=== PATIENT | female | born 1975 | race Two or more races ===

== ENCOUNTER 2019-09-21 23:37 | Emergency (ER) | payer SELFPAY ==
[~2019-09-21] VITALS: Ht 162.6 cm; Wt 60.3 kg
--- NOTE | 2019-09-22 00:23 | NUR ---
BIBS. C.O "KANDY BEEN HAVING ALOT OF VAGINAL BLEEDING +ABDOMINAL PAIN" -SOB AOX4. VSS.
--- NOTE | 2019-09-22 00:47 | NUR ---
URINE COLLECTED AND SENT TO LAB
[2019-09-22] MEDS ORDERED: ONDANSETRON HCL/PF 4 MG/2 ML VIAL ONE (01:28)
[2019-09-22] MEDS ORDERED: MORPHINE SULFATE INJ 4 MG/ML DISP.SYRIN ONE ×2 (01:29→03:03)
[2019-09-22] MEDS ORDERED: ONDANSETRON HCL/PF 4 MG/2 ML VIAL IV ONE (01:30)
[2019-09-22] MEDS ORDERED: MORPHINE SULFATE INJ 2 MG/ML DISP.SYRIN IV ONE ×2 (01:30→03:30)
[2019-09-22 01:40] LABS: BASOPHILS # (AUTO) 0.1 /CMM (0.0-0.2); BASOPHILS % (AUTO) 1.2 % (0.0-2.0); EOSINOPHILS % (AUTO) 1.3 % (0.0-6.0); HEMATOCRIT 39 % (33-45); HEMOGLOBIN 13.4 g/dL (11.5-14.8); LYMPHOCYTES # (AUTO) 2.5 /CMM (0.8-4.8); LYMPHOCYTES % (AUTO) 32.8 % (20.0-44.0); MEAN CORPUSCULAR HGB CONC 34 g/dl (31.0-36.0); MEAN CORPUSCULAR VOLUME 90 fL (82-100); MONOCYTES # (AUTO) 0.7 /CMM (0.1-1.30); MONOCYTES % (AUTO) 8.9 % (2.0-12.0); NEUTROPHILS # (AUTO) 4.3 /CMM (1.8-8.9); NEUTROPHILS % (AUTO) 55.8 % (43.0-81.0); PLATELET COUNT (AUTO) 331 /CMM (150-450); RED BLOOD CELL COUNT(AUTO) 4.39 MIL/uL (4.0-5.2); WHITE BLOOD COUNT (AUTO) 7.7 K/uL (4.3-11.0)
--- NOTE | 2019-09-22 01:44 | NUR ---
LINE AND LABS FINISHED, LAB SENT WITH NAIL MAKER. PT ALERT AND ORIENTED AT THIS TIME. -ACUTE DISTRESS NOTED AFTER MEDICATION ADMINISTRATION. VSAnjelica COLLAZO AWARE
--- NOTE | 2019-09-22 01:55 | NUR ---
US AT BEDSIDE
[2019-09-22 02:26] LABS: CALCIUM, SERUM 8.6 mg/dL (8.5-10.1); CREATININE 0.9 mg/dL (0.6-1.3); POTASSIUM 3.3 mmol/L (3.5-5.1)
[2019-09-22] MEDS ORDERED: IOHEXOL-300 100 ML VIAL IV ONE (03:02)
[2019-09-22] MEDS ORDERED: IV NS 0.9% 250 ML IV ONE (03:03)
--- NOTE | 2019-09-22 04:17 | NUR ---
pt ok to be discharged per dr perry. IV removed. Catheter intact and site benign. Pressure and 4x4 applied to site. No bleeding noted.Patient discharged to home in stable condition. Written and verbal after care instructions given. Patient verbalizes understanding of instruction.Patient is awake and alert to self, day, and place. pt ambulatory with a steady gait
[2019-09-22 04:18] VITALS: BP 134/72
== END 2019-09-22 04:18 | disposition home or self-care (01) ==
LOC: ER 23:42
DX: N93.8 Other specified abnormal uterine and vaginal bleeding (principal); R10.32 Left lower quadrant pain
CPT/HCPCS: 36415; 74177; 76856; 80048; 84703; 85025; 96374; 96375; 96376; 99284; J2270 ×2; J2405; J7050; Q9967

== ENCOUNTER 2019-11-09 17:16 | Emergency (ER) | payer MEDICAID ==
--- NOTE | 2019-11-09 17:20 | NUR ---
PT CALLED TO TRIAGE, PT NOT IN WAITING ROOM
--- NOTE | 2019-11-09 18:00 | NUR ---
PT CALLED TO TRIAGE, PT NOT IN WAITING ROOM
== END 2019-11-09 18:00 | disposition left against medical advice (07) ==
LOC: ER 17:19
DX: Z53.21 Procedure and treatment not carried out due to patient leaving prior to being seen by health care provider (principal)

== ENCOUNTER 2022-04-14 22:37 | Emergency (ER) | payer MEDICAID ==
[~2022-04-14] VITALS: Ht 157.5 cm; Wt 70.3 kg
--- NOTE | 2022-04-14 23:19 | NUR ---
BIBFAMILY C/O L SIDED HEADACHE X 2 DAYS. DESCRIBES "THROBBING". TOOK TYLENOL AND MOTRIN WITH NO RELIEF. PAIN IS WORSE WHEN TURNING HEAD TO THE LEFT. PT AAOX4 , AMBULATORY WITH STEADY GAIT. BREATHING IS EVEN AND NON LABORED. CONNECTED TO MONITOR
[2022-04-14] MEDS ORDERED: CARISOPRODOL 350 MG TABLET ONE (23:20)
[2022-04-14] MEDS ORDERED: MORPHINE SULFATE INJ 4 MG/ML DISP.SYRIN ONE (23:20)
[2022-04-14] MEDS ORDERED: METOCLOPRAMIDE HCL 10 MG/2 ML VIAL ONE (23:20)
[2022-04-14] MEDS ORDERED: CARISOPRODOL 350 MG TABLET PO ONE (23:30)
[2022-04-14] MEDS ORDERED: METOCLOPRAMIDE HCL 10 MG/2 ML VIAL IV ONE (23:30)
[2022-04-14] MEDS ORDERED: MORPHINE SULFATE INJ 2 MG/ML DISP.SYRIN IV ONE (23:30)
[2022-04-14] MEDS ORDERED: IV NS 0.9% 1,000 ML BAG IV ONE (23:30)
--- NOTE | 2022-04-14 23:31 | NUR ---
IV LINE ESTABLISHED, LAC20G. BLOOD OBTAINED AND SENT TO LAB
[2022-04-14 23:37] LABS: BASOPHILS # (AUTO) 0.1 K/uL (0.0-0.2); BASOPHILS % (AUTO) 1.1 % (0.0-2.0); EOSINOPHILS % (AUTO) 0.7 % (0.0-6.0); HEMATOCRIT 41 % (33-45); HEMOGLOBIN 13.8 g/dL (11.5-14.8); LYMPHOCYTES # (AUTO) 3.6 K/uL (0.8-4.8); LYMPHOCYTES % (AUTO) 38.5 % (20.0-44.0); MEAN CORPUSCULAR HGB CONC 34 g/dl (31.0-36.0); MEAN CORPUSCULAR VOLUME 91 fL (82-100); MONOCYTES # (AUTO) 0.6 K/uL (0.1-1.30); MONOCYTES % (AUTO) 6.3 % (2.0-12.0); NEUTROPHILS % (AUTO) 53.4 % (43.0-81.0); PLATELET COUNT (AUTO) 258 K/uL (150-450); RED BLOOD CELL COUNT(AUTO) 4.43 MIL/uL (4.0-5.2); WHITE BLOOD COUNT (AUTO) 9.4 K/uL (4.3-11.0)
[2022-04-14 23:57] LABS: CALCIUM, SERUM 8.8 mg/dL (8.5-10.1); CREATININE 0.7 mg/dL (0.6-1.3); POTASSIUM 3.9 mmol/L (3.5-5.1)
[2022-04-15] LABS: ALBUMIN 4.4 g/dL (3.4-5.0); BILIRUBIN,DIRECT 0.1 mg/dL (0.0-0.2); BILIRUBIN,TOTAL 0.3 mg/dL (0.2-1.0); TOTAL PROTEIN, SERUM 8.4 g/dL (6.4-8.2)
[2022-04-15] MEDS ORDERED: IBUP-1957 PO (00:51)
[2022-04-15] MEDS ORDERED: CARI350T PO (00:51)
[2022-04-15] MEDS ORDERED: PRED50TA PO (00:51)
--- NOTE | 2022-04-15 01:09 | NUR ---
IV removed. Catheter intact and site benign. Pressure and 4x4 applied to site. No bleeding noted.
--- NOTE | 2022-04-15 01:09 | NUR ---
Patient discharged to home in stable condition. Written and verbal after care instructions given. Patient verbalizes understanding of instruction.
[2022-04-15 01:14] VITALS: BP 135/91
== END 2022-04-15 01:14 | disposition home or self-care (01) ==
LOC: ER 22:44
DX: G44.209 Tension-type headache, unspecified, not intractable (principal); M62.838 Other muscle spasm; Z87.42 Personal history of other diseases of the female genital tract; Z60.2 Problems related to living alone; Z79.899 Other long term (current) drug therapy
CPT/HCPCS: 36415; 70450; 80048; 80076; 85025; 85730; 96361; 96374; 96375; 99284; J2270; J2765; J7030

== ENCOUNTER 2022-12-24 22:08 | Emergency (ER) | payer MEDICAID ==
[~2022-12-24] VITALS: Ht 147.3 cm; Wt 63.5 kg
[~2022-12-24 22:08] MED LIST: CARI350T PO; IBUP-1957 PO; PRED50TA PO
--- NOTE | 2022-12-24 23:45 | NUR ---
BIBS. TO ER BED 7. AAOX4. NOT IN RESP DISTRESS, BREATHING EVEN AND UNLABORED. AMBULATORY ON STEADY GAIT. CAME IN FOR COUGH, NASAL AND CHEST CONGESTION X 1 MONTH. PT STARTED TAKING BENZOATE PRESCRIBED ON MONDAY. PT IS ALSO COMPLAINING OF LOWER BACK PAIN, STATES THAT SHE WAS DIAGNOSED WITH KIDNEY STONE 1 MONTH AGO. VS ARE STABLE. URINE COLLECTED. AWAITING MD FOR EVAL.
--- NOTE | 2022-12-25 00:18 | NUR ---
COVID AND FLU SWAB DONE THEN SENT TO LAB
[2022-12-25] MEDS ORDERED: ONDANSETRON HCL/PF 4 MG/2 ML VIAL ONE (00:20)
[2022-12-25] MEDS ORDERED: ONDANSETRON HCL/PF 4 MG/2 ML VIAL IV ONE (00:30)
[2022-12-25] MEDS ORDERED: IV NS 0.9% 1,000 ML IV ONE (00:30)
[2022-12-25 00:37] LABS: BASOPHILS # (AUTO) 0.1 K/uL (0.0-0.2); BASOPHILS % (AUTO) 1.3 % (0.0-2.0); EOSINOPHILS % (AUTO) 4.8 % (0.0-6.0); HEMATOCRIT 39 % (33-45); HEMOGLOBIN 13.5 g/dL (11.5-14.8); LYMPHOCYTES # (AUTO) 2.3 K/uL (0.8-4.8); LYMPHOCYTES % (AUTO) 28.2 % (20.0-44.0); MEAN CORPUSCULAR HGB CONC 34 g/dl (31.0-36.0); MEAN CORPUSCULAR VOLUME 91 fL (82-100); MONOCYTES # (AUTO) 0.6 K/uL (0.1-1.30); NEUTROPHILS # (AUTO) 4.8 K/uL (1.8-8.9); NEUTROPHILS % (AUTO) 58.7 % (43.0-81.0); PLATELET COUNT (AUTO) 274 K/uL (150-450); RED BLOOD CELL COUNT(AUTO) 4.31 MIL/uL (4.0-5.2); WHITE BLOOD COUNT (AUTO) 8.3 K/uL (4.3-11.0)
[2022-12-25 00:41] LABS: BILIRUBIN,URINE NEGATIVE (NEGATIVE); COLOR,URINE YELLOW (YELLOW); LEUKOCYTE ESTERASE ,URINE NEGATIVE (NEGATIVE); NITRITE, URINE NEGATIVE (NEGATIVE); PROTEIN,URINE NEGATIVE (NEGATIVE); UGLUCOSE NEGATIVE (NEGATIVE); UROBILINOGEN,URINE 0.2 EU/dL (0.2)
[2022-12-25 00:42] LABS: BACTERIA,URINE Rare /HPF (None Seen); SQUAMOUS EPITHELIAL CELL,UR Few /HPF (None Seen); WBC,URINE 0-2 /HPF (0-3)
[2022-12-25 00:54] LABS: ALBUMIN 3.7 g/dL (3.4-5.0); BILIRUBIN,TOTAL 0.3 mg/dL (0.2-1.0); CALCIUM, SERUM 8.8 mg/dL (8.5-10.1); CREATININE 0.8 mg/dL (0.6-1.3); POTASSIUM 3.6 mmol/L (3.5-5.1); TOTAL PROTEIN, SERUM 7.7 g/dL (6.4-8.2)
[2022-12-25] MEDS ORDERED: ACETAMINOPHEN 325 MG TABLET PO ONE (01:00)
[2022-12-25 01:15] LABS: BILIRUBIN,DIRECT 0.1 mg/dL (0.0-0.2)
[2022-12-25] MEDS ORDERED: KETOROLAC TROMETHAMINE 15 MG/ML VIAL ONE (01:17)
[2022-12-25] MEDS ORDERED: ACETAMINOPHEN 325 MG TABLET ONE (01:17)
[2022-12-25] MEDS ORDERED: KETOROLAC TROMETHAMINE INJ 30 MG/ML VIAL IV ONE (01:30)
--- NOTE | 2022-12-25 02:25 | NUR ---
STARAD PAGED REGARDING IMAGING READS, INFORMED IMAGING CAN TAKE UP TO 3HOURS FOR READS DUE TP HIGH VOLUME.
[2022-12-25] MEDS ORDERED: MORPHINE SULFATE INJ 2 MG/ML DISP.SYRIN IV ONE (02:30)
[2022-12-25] MEDS ORDERED: MORPHINE SULFATE INJ 4 MG/ML DISP.SYRIN ONE (03:36)
--- NOTE | 2022-12-25 04:30 | NUR ---
Pt is resting as Morphine and Zofran IVP noted effective . Pt care continue as she is been monitor closely as awaits test results.
[2022-12-25] MEDS ORDERED: ONDA4TAB11 PO (04:42)
--- NOTE | 2022-12-25 05:33 | NUR ---
Pt is noted stable as she is been discharge to home with all discharge instructions given and IV Access been discontinue.
[2022-12-25 05:35] VITALS: BP 118/72
== END 2022-12-25 05:37 | disposition home or self-care (01) ==
LOC: ER 22:12
DX: B34.9 Viral infection, unspecified (principal); R10.2 Pelvic and perineal pain; R11.2 Nausea with vomiting, unspecified; Z20.822 Contact with and (suspected) exposure to COVID-19; Z87.442 Personal history of urinary calculi; Z60.2 Problems related to living alone; Z79.899 Other long term (current) drug therapy
CPT/HCPCS: 99285; 84703; 81001; 74176; 96374; 71045; 96375; 96361; 87426; 93005; 87804 ×2; 85025; 80048; 83690; 80076; 36415; 84702; J2270; J2405; J7030; J1885; C9803